=== PATIENT | female | born 1955 | race Caucasian/White ===

== ENCOUNTER → 2020-09-10 16:46 | Outpatient (BNVA) | payer SELFPAY | PROVIDERS: Family Provider Nurse Practitioner; PCP Nurse Practitioner; Visit Provider Nurse Practitioner | DX: E03.8 Other specified hypothyroidism (principal) | CPT/HCPCS: 84443 ==

== ENCOUNTER → 2020-09-12 11:17 | Outpatient (BNVA) | payer SELFPAY | PROVIDERS: Family Provider Nurse Practitioner; PCP Nurse Practitioner; Visit Provider Nurse Practitioner | DX: R19.7 Diarrhea, unspecified (principal); E03.8 Other specified hypothyroidism | CPT/HCPCS: 87506 ==

== ENCOUNTER 2021-01-29 11:06 | Emergency (ER) | payer SELFPAY ==
[2021-01-29 11:44] VITALS: BP 148/78; PULSE 65; RESP 18; TEMP 37.1; O2SAT 96; BMI 30.8
[2021-01-29] MEDS: rabies vaccine 2.5 unit SDV IM (13:41)
--- NOTE | 2021-01-29 14:19 | ED_ITS ---
HPI - Animal Bite General: Chief Complaint: Animal Bite Stated Complaint: Cat bite to L hand Time Seen by Provider: 01/29/21 11:51 Source: patient Mode of arrival: ambulatory Limitations: no limitations History of Present Illness: MD complaint: animal bite Onset (ago): minute(s) Animal: cat Description of animal: unknown animal Mechanism: bite Location: other (left 1st digit) Context: unprovoked Associated symptoms: Reports no associated symptoms; Deny chills, diaphoresis, fever(s), headache(s) or syncope Treatments prior to arrival: wound dressing(s) Related Data: Patient tetanus UTD: Yes Review of Systems Const: Denies: fever(s), chills, body aches, change in appetite, change in weight, fatigue, malaise or diaphoresis Eyes: Denies: change in vision, blurry vision, blind spots, photophobia, eye discomfort, eye discharge, eye redness, floaters or seeing flashes ENMT: Denies: throat pain, uvular edema, enlarged tonsils, odynophagia, hoarseness, mouth pain, swelling of lips/tongue, oral sores, bleeding gums, dental pain, dry mouth, ear or mastoid pain, ear discharge, change in hearing, tinnitus, disequilibrium, nasal discharge, nasal congestion, post nasal drip or sinus pain Card: Denies: chest pain, palpitations, irregular heart rhythm, edema, swelling of feet/ankles, lightheadedness, syncope, pre-syncope, dyspnea on exertion, orthopnea, leg pain with exertion or acrocyanosis Resp: Denies: dyspnea, productive cough, non-productive cough, wheezing, stridor, pain on inspiration, change in phlegm color, hemoptysis or chest congestion GI: Denies: abdominal pain, nausea, vomiting, hematemesis, dysphagia, diarrhea, constipation, GI cramping, change in bowel habits or rectal pain : Denies: flank pain, difficulty voiding, dysuria, urinary frequency, urinary urgency, urinary hesitancy or hematuria Musc: Denies: neck pain, back pain, extremity pain, extremity swelling, joint pain, joint swelling, joint redness, joint warmth or deformity Skin/Breast: Reports: other (puncture wound to distal portion of 1st digit left hand); Denies: rash, pruritus, erythema, sores, new lesions, changes in skin color or dry skin Neuro: Denies: headache(s), numbness in extremities, weakness in extremities, sensory changes, lack of coordination, difficulty walking, frequent falls, dizziness, vertigo, confusion, behavioral changes, Slurred speech present, difficulty communicating thoughts or seizure-like activity Psych: Denies: anxiety, depression, suicidal ideation or homicidal ideation Endo: Denies: polyuria, polydipsia, tired all the time, cold intolerance, excessive sweating, flushing, hot flashes or heat intolerance Da/Lymph: Denies: easy bruising, easy bleeding, petechiae, purpura, enlarged lymph nodes or tender lymph nodes All/Imm: Denies: urticaria, throat swelling, tongue swelling, facial swelling, acute wheezing or itchy eyes PFSH ED PFSH: Medical History Adult onset hypothyroidism Asthma dependent on inhaled steroids HZV (herpes zoster virus) post herpetic neuralgia Mixed hyperlipidemia Surgical History History of hysterectomy with BSO History of laparoscopy Family History Mother Hypertension Asthma Social History Smoking and tobacco status: never smoked Second hand smoke exposure: No Smoking risk assessment/counseling performed?: No Alcohol intake: never Desire information about alcohol rehabilitation?: No Counseling given: No Desire information about substance/drug rehabilitation?: No Counseling given: No Adopted: No Caregiver/support person: No Lives independently: Yes Household members: spouse Housing: House Marital status: Number of children: 2 service: No Current occupational status: retired History of recent travel: No Current gender identity: Female Physical Exam Const: COMMON NORMALS: no acute distress, average body habitus, patient arthur ented x3, no limitations, healthy appearing, alert and well nourished HENMT: THROAT: no uvular edema Extremity: COMMON NORMALS: full ROM, capillary refill normal, no joint enlargement, no clubbing, cyanosis or edema, no calf tenderness and no pedal edema NARRATIVE EXTREMITY EXAM: pt has a small puncture wound secondary to kitten bite to distal portion of left 1st digit Neuro: COMMON NORMALS: patient oriented x3 SENSORIUM/ORIENTATION: Yes alert Course Vital Signs: Vital signs: Vital Signs Temperature 98.8 F 01/29/21 11:44 Pulse Rate 65 01/29/21 11:44 Respiratory Rate 18 01/29/21 11:44 Blood Pressure 148/78 01/29/21 11:44 Pulse Oximetry 96 01/29/21 11:44 MDM - Animal Bite MDM Narrative: Medical decision making narrative: Pt is well appearing non toxic and in no acute distress. Pt reported to health department for cat bite and received tetanus. Pt was sent here for rabies vaccine which after sdiscussion with patient was administred. Pt will be started on antibiotics and instructions to return for days days 3, 7, and 14 vacinations was instructed. Wound was cleansed and dressed. Discharge Plan Discharge Clinical Impression: Encounter for immunization Cat bite Qualifiers: Encounter type: initial encounter Qualified Code(s): W55.01XA - Bitten by cat, initial encounter Condition: Stable Prescriptions: New doxycycline hyclate 100 mg capsule 100 mg PO BID 10 Days Qty: 20 RF: 0 No Action hydroxyzine pamoate 25 mg capsule 25 mg PO BID PRN (Reason: anxiety) Qty: 60 RF: 0 albuterol sulfate [ProAir HFA] 90 mcg/actuation HFA aerosol inhaler 2 puff INHALATION Q6H PRN (Reason: shortness of breath or wheezing) Qty: 6.7 RF: 5 levothyroxine 112 mcg tablet 112 mcg PO DAILY Qty: 90 RF: 1 montelukast [Singulair] 10 mg tablet 10 mg PO ONCE Qty: 90 RF: 1 gemfibrozil 600 mg tablet 600 mg PO BID Qty: 180 RF: 1 Flovent HFA 110 mcg/actuation HFA aerosol inhaler 2 puff INHALATION BID Qty: 12 RF: 5 fluticasone propionate 50 mcg/actuation spray,suspension 2 spray INTRANASAL DAILY Qty: 15.8 RF: 5 zonisamide [Zonegran] 25 mg capsule 25 mg PO Q12H Qty: 60 RF: 1 tizanidine 2 mg tablet 4 mg PO BID PRN (Reason: muscle spasticity) Qty: 120 RF: 2 duloxetine [Cymbalta] 20 mg capsule,delayed release(DR/EC) 20 mg PO BID Qty: 180 RF: 0 gabapentin 300 mg capsule 300 mg PO TID Qty: 90 RF: 2 Discharge Orders: Discharge ED (Routine); Ordered 01/29/21 Ordered By: Gertrude Larry Referrals: Clarence Brantley, MICROBIOLOGY MANAGER-C [Primary Care Provider] - Discharge Diet: Advance as tolerated Discharge Activity: Resume usual activity Patient Instructions: Rabies Vaccine (Injection), Rabies Immune Globulin (Injection) Activity Restrictions/Additional Instructions: Please take meds as directed Please return with any signs of infection such as fever or foul smelling drainage Please return to ER on days 3, 7, and 14 for continued series of rabies vaccine Coding Level of Care Code ED Pack Out Operator for Irma Santos
== END 2021-01-29 14:34 | disposition home or self-care (01) ==
PROVIDERS: Emergency Provider Registered Nurse; PCP Nurse Practitioner
DX: S61.452A Open bite of left hand, initial encounter (principal); W55.01XA Bitten by cat, initial encounter; Z20.3 Contact with and (suspected) exposure to rabies; Z29.14 Encounter for prophylactic rabies immune globulin; Z23 Encounter for immunization; E78.2 Mixed hyperlipidemia
CPT/HCPCS: 90375; 90471; 90675; 96372; 99283

== ENCOUNTER → 2021-04-28 10:31 | Outpatient (BNVA) | payer OTHER, SELFPAY | PROVIDERS: PCP Nurse Practitioner; Visit Provider Nurse Practitioner Family | DX: Z20.822 Contact with and (suspected) exposure to COVID-19 (principal) | CPT/HCPCS: 87426 ==

== ENCOUNTER 2021-04-29 08:33 | Outpatient (CLI) | payer OTHER, SELFPAY ==
[2021-04-29 08:43] VITALS: BMI 30.2
[2021-04-29 08:58] VITALS: BP 144/84; PULSE 80; RESP 18; TEMP 36.7; O2SAT 98
[2021-04-29 09:15] VITALS: BP 128/78; PULSE 96; RESP 20; TEMP 37.1; O2SAT 90
[2021-04-29 10:15] VITALS: BP 122/74; PULSE 67; RESP 18; TEMP 37.3; O2SAT 96
== END 2021-04-29 08:34 | disposition home or self-care (01) ==
LOC: OPS 08:36
PROVIDERS: PCP Nurse Practitioner; Visit Provider Nurse Practitioner Family
DX: U07.1 COVID-19 (principal)
CPT/HCPCS: 96365

== ENCOUNTER → 2021-05-12 11:52 | Outpatient (BNVA) | payer SELFPAY | PROVIDERS: PCP Nurse Practitioner; Visit Provider Nurse Practitioner | DX: E78.2 Mixed hyperlipidemia (principal); E03.8 Other specified hypothyroidism; J45.909 Unspecified asthma, uncomplicated; B02.8 Zoster with other complications; L30.8 Other specified dermatitis; M62.830 Muscle spasm of back | CPT/HCPCS: 80053; 80061; 84443 ==

== ENCOUNTER → 2021-05-19 11:32 | Outpatient (BNVA) | payer SELFPAY | PROVIDERS: PCP Nurse Practitioner; Visit Provider Family Medicine | DX: R05.9 Cough, unspecified (principal); R51.9 Headache, unspecified; R52 Pain, unspecified | CPT/HCPCS: 86710; 87400; 87426 ==

== ENCOUNTER → 2021-06-16 14:05 | Outpatient (BNVA) | payer SELFPAY | PROVIDERS: PCP Nurse Practitioner; Visit Provider Nurse Practitioner | DX: L98.9 Disorder of the skin and subcutaneous tissue, unspecified (principal) | CPT/HCPCS: 88305 ==

== ENCOUNTER → 2021-07-22 08:58 | Outpatient (BNVA) | payer SELFPAY | PROVIDERS: PCP Nurse Practitioner; Visit Provider Dermatology | DX: Z01.89 Encounter for other specified special examinations (principal) ==

== ENCOUNTER → 2021-08-13 09:20 | Outpatient (BNVA) | payer SELFPAY | PROVIDERS: PCP Nurse Practitioner; Visit Provider Dermatology | DX: Z01.89 Encounter for other specified special examinations (principal) ==

== ENCOUNTER → 2021-12-17 08:51 | Outpatient (BNVA) | payer BC, SELFPAY | PROVIDERS: PCP Nurse Practitioner; Visit Provider Nurse Practitioner | DX: E03.8 Other specified hypothyroidism (principal); E78.2 Mixed hyperlipidemia | CPT/HCPCS: 80053; 80061; 84443 ==

== ENCOUNTER 2022-05-22 07:36 | Outpatient (CLI) | payer BC, SELFPAY ==
--- NOTE | 2022-05-22 07:47 | MM_ITS ---
WS: [id number] Bilateral screening 3D tomosynthesis digital mammogram, 05/22/2022 Clinical Data: SCREEN Comparison: 10/15/2017, 10/23/2014, 12/23/2009, 01/23/2008, 01/20/2007. Findings: The breast parenchymal pattern shows heterogeneous density. No spiculated masses or clustered calcifi cations are seen. There are no secondary signs of carcinoma. MM/[place] [id number] Impression: 1. Negative bilateral mammogram unchanged. 2. Recommend annual screening mammograms. BIRADS: 1-Negative FOLLOW UP: 1 Year Follow-up The CAD bad cloth checker was used.
== END 2022-05-22 07:37 | disposition home or self-care (01) ==
PROVIDERS: PCP Nurse Practitioner; Visit Provider Nurse Practitioner
DX: Z12.31 Encounter for screening mammogram for malignant neoplasm of breast (principal)
CPT/HCPCS: 77063; 77067

== ENCOUNTER 2022-10-02 05:58 | Day surgery (SDC) | payer BC, SELFPAY ==
[2022-09-30 12:54] VITALS: BMI 30.8
[2022-10-02 06:18] VITALS: BP 107/76; PULSE 71; RESP 18; TEMP 36.1; O2SAT 97
[2022-10-02] MEDS: sodium chloride 0.9% 1,000 ML 30 ML IV (06:21)
--- NOTE | 2022-10-02 06:54 | ANES.PREANE2 ---
Pre-Anesthetic Assessment Height/Weight: Height 1.55 m Weight 73.936 kg Temp Pulse Resp BP Pulse Ox O2 Del Method 97.0 F L 71 18 107/76 97 10/02/22 06:18 10/02/22 06:18 10/02/22 06:18 10/02/22 06:18 10/02/22 06:18 10/02/22 06:18 Preop Diagnosis: screening Operation Date: 10/02/22 07:30 Proposed Procedures p [id number] colon : Z12.11(Bilateral) - Shelton Chu DO Familial anesthetic complications: dad was slow to wake up Was Beta Danita taken within 24 hours: N/A Was Clonidine taken within 24 hours: N/A Last intake: Intake Last Liquid Date 10/02/22 Last Liquid Time 01:00 Last Solid Date 09/30/22 Last Solid Time 20:30 Last Intake: 01:00 Social No alcohol and No tobacco Exam alert, oriented x 3, clear to auscultation bilaterally and regular rate & rhythm Airway Submandibular: within normal limits Cervical ROM: within normal limits Mallampati: Class II Dentition: full Pulmonary Asthma and Exertional Dyspnea CV/HEM None reported Chronic Renal Insufficiency Hepatic None reported GI Gastroesophageal Reflux Disease (food related) Metabolic Thyroid Disease [facility] None reported Neuropsych None reported Anesthetic Plan ASA status: 2 Anesthesia: MAC Risk of > 500 ml blood loss (7ml/kg in children): No Medications/Allergies Home Medications Medication Instructions Recorded Confirmed Last Taken Type albuterol sulfate 90 mcg/actuation 2 puff inhalation Q6H PRN 12/26/21 10/02/22 09/30/22 Rx aerosol inhaler (ProAir HFA) shortness of breath or wheezing #6.7 grams fluticasone propionate 110 2 puff inhalation BID #12 grams 08/14/22 10/02/22 09/30/22 Rx mcg/actuation HFA aerosol inhaler (Flovent HFA) gemfibrozil 600 mg tablet 600 mg PO BID #180 tabs 08/14/22 10/02/22 09/30/22 Rx levothyroxine 112 mcg tablet 112 mcg PO DAILY #90 tabs 08/14/22 10/02/22 09/30/22 Rx montelukast 10 mg tablet 10 mg PO DAILY #90 tabs 08/14/22 10/02/22 09/30/22 Rx (Singulair) tizanidine 2 mg tablet 4 mg PO BID PRN muscle spasticity 08/14/22 10/02/22 09/30/22 Rx #120 tabs fluticasone propionate 50 2 spray intranasal DAILY PRN 09/30/22 10/02/22 09/30/22 History mcg/actuation nasal Congestion spray,suspension Allergies Allergy/AdvReac Type Severity Reaction Status Date / Time oxaprozin [From Daypro] Allergy Unknown unknown Verified 10/02/22 06:15 Penicillins Allergy Unknown unknown Verified 10/02/22 06:15 Current Medications Generic Name Dose Route Start Last Admin Trade Name Freq PRN Reason Stop Dose Admin Sodium Chloride 1,000 mls @ 30 mls/hr 10/02/22 06:00 10/02/22 06:21 Sodium Chloride 0.9% IV 10/03/22 05:59 30 mls/hr .Q24H KOSTA Administration PFSH Anesthesia Medical History Adult onset hypothyroidism Asthma dependent on inhaled steroids HZV (herpes zoster virus) post herpetic neuralgia Mixed hyperlipidemia Obesity (BMI 30.0-34.9) Surgical History History of hysterectomy with BSO History of laparoscopy Family History Mother Hypertension Asthma Social History Smoking and tobacco status: never smoked Second hand smoke exposure: No Smoking risk assessment/counseling performed?: No Alcohol intake: never Desire information about alcohol rehabilitation?: No Counseling given: No Desire information about substance/drug rehabilitation?: No Counseling given: No Adopted: No Caregiver/support person: No Lives independently: Yes Household members: spouse Housing: House Marital status: Number of children: 2 service: No Current occupational status: retired History of recent travel: No Current gender identity: Female Data Anesthesia Cardiac Studies: No Data to Display
--- NOTE | 2022-10-02 07:35 | PM.HP ---
Providers/Chief Complaint Primary Care Provider: DARWIN Fowler Chief Complaint: Encounter for screening History of Present Illness Claritza Nguyen is a 67 year old female who presents for a screening colonoscopy. Her last colonoscopy was in 2007 and was within normal limits reportedly. She denies any abdominal pain, nausea, emesis, diarrhea, constipation, hematochezia and/or melena. Denies any family history of colon cancer. Medications/Allergies Home Medications Medication Instructions Recorded Confirmed Last Taken Type albuterol sulfate 90 mcg/actuation 2 puff inhalation Q6H PRN 12/26/21 10/02/22 09/30/22 Rx aerosol inhaler (ProAir HFA) shortness of breath or wheezing #6.7 grams fluticasone propionate 110 2 puff inhalation BID #12 grams 08/14/22 10/02/22 09/30/22 Rx mcg/actuation HFA aerosol inhaler (Flovent HFA) gemfibrozil 600 mg tablet 600 mg PO BID #180 tabs 08/14/22 10/02/22 09/30/22 Rx levothyroxine 112 mcg tablet 112 mcg PO DAILY #90 tabs 08/14/22 10/02/22 09/30/22 Rx montelukast 10 mg tablet 10 mg PO DAILY #90 tabs 08/14/22 10/02/22 09/30/22 Rx (Singulair) tizanidine 2 mg tablet 4 mg PO BID PRN muscle spasticity 08/14/22 10/02/22 09/30/22 Rx #120 tabs fluticasone propionate 50 2 spray intranasal DAILY PRN 09/30/22 10/02/22 09/30/22 History mcg/actuation nasal Congestion spray,suspension Allergies Allergy/AdvReac Type Severity Reaction Status Date / Time oxaprozin [From Daypro] Allergy Unknown unknown Verified 10/02/22 06:15 Penicillins Allergy Unknown unknown Verified 10/02/22 06:15 PFSH Acute PFSH: Medical History Adult onset hypothyroidism Asthma dependent on inhaled steroids HZV (herpes zoster virus) post herpetic neuralgia Mixed hyperlipidemia Obesity (BMI 30.0-34.9) Surgical History History of hysterectomy with BSO History of laparoscopy Family History Mother Hypertension Asthma Social History Smoking and tobacco status: never smoked Second hand smoke exposure: No Smoking risk assessment/counseling performed?: No Alcohol intake: never Desire information about alcohol rehabilitation?: No Counseling given: No Desire information about substance/drug rehabilitation?: No Counseling given: No Adopted: No Caregiver/support person: No Lives independently: Yes Household members: spouse Housing: House Marital status: Number of children: 2 service: No Current occupational status: retired History of recent travel: No Current gender identity: Female Vitals/I&O/Wt Last Vital Signs Temp 97.0 F L 10/02/22 06:18 Pulse 71 10/02/22 06:18 Resp 18 10/02/22 06:18 BP 107/76 10/02/22 06:18 Pulse Ox 97 10/02/22 06:18 O2 Del Method 10/02/22 06:18 Weight last 48 hrs Weight 163 lb A&P Assessment and plan (1) Colon cancer screening: Plan Colonoscopy The risks and benefits of the procedure, including bleeding, infection, intestinal perforation requiring surgery, missed lesion were explained to the patient. The patient is understanding of the risks and wishes to proceed. Attestations Medical Necessity Statement*: Home Coding Level of Care Code Acute Code for Chg Fwd Diagnoses Colon cancer screening Z12.11
[2022-10-02 08:02] VITALS: BP 111/70; PULSE 73; RESP 12; TEMP 36.4; O2SAT 97
[2022-10-02 08:17] VITALS: BP 124/78; PULSE 87; RESP 14; O2SAT 97
[2022-10-02 08:27] VITALS: BP 125/79; PULSE 85; RESP 16; O2SAT 95
--- NOTE | 2022-10-02 17:57 | ANE.PACU2 ---
Inpatient post-anesthesia follow up: Airway intact: Yes Vital signs: Temperature 97.5 F Pulse Rate 85 Respiratory Rate 16 Blood Pressure 125/79 Pulse Oximetry 95 Oxygen Delivery Me thod Room Air Oxygen Flow Rate Fraction of Inspir ed Oxygen Hydration adequate: Yes Nausea and vomiting: No Pain level: 1 Mental status: Baseline
== END 2022-10-02 08:40 | disposition home or self-care (01) ==
PROVIDERS: PCP Nurse Practitioner; Visit Provider Surgery
PROC: 0DJD8ZZ Inspection of Lower Intestinal Tract, Via Natural or Artificial Opening Endoscopic (ICD-10-PCS; CPT 45378; principal; 2022-10-02 07:30)
DX: Z12.11 Encounter for screening for malignant neoplasm of colon (principal); E03.9 Hypothyroidism, unspecified; E78.2 Mixed hyperlipidemia; E66.9 Obesity, unspecified; Z68.30 Body mass index [BMI] 30.0-30.9, adult
CPT/HCPCS: 45378; J2704; J7030

== ENCOUNTER → 2023-02-16 16:59 | Outpatient (BNVA) | payer BC, SELFPAY | PROVIDERS: PCP Nurse Practitioner; Visit Provider Nurse Practitioner | DX: R05.9 Cough, unspecified (principal); E03.8 Other specified hypothyroidism; Z79.899 Other long term (current) drug therapy | CPT/HCPCS: 81000 ==

== ENCOUNTER → 2023-02-17 11:00 | Outpatient (BNVA) | payer BC, SELFPAY | PROVIDERS: PCP Nurse Practitioner; Visit Provider Nurse Practitioner | DX: R05.9 Cough, unspecified (principal) | CPT/HCPCS: 71046 ==

== ENCOUNTER → 2023-04-20 09:00 | Outpatient (BNVA) | payer SELFPAY | PROVIDERS: PCP Nurse Practitioner; Visit Provider Nurse Practitioner | DX: Z01.89 Encounter for other specified special examinations (principal) ==

== ENCOUNTER → 2023-07-20 09:18 | Outpatient (BNVA) | payer SELFPAY | PROVIDERS: PCP Nurse Practitioner; Visit Provider Nurse Practitioner | DX: Z01.89 Encounter for other specified special examinations (principal); E03.8 Other specified hypothyroidism ==

== ENCOUNTER → 2023-07-27 17:53 | Outpatient (BNVA) | payer MEDICARE, SELFPAY | PROVIDERS: PCP Nurse Practitioner; Visit Provider Nurse Practitioner | DX: J45.909 Unspecified asthma, uncomplicated (principal); E78.2 Mixed hyperlipidemia; E03.8 Other specified hypothyroidism; Z79.51 Long term (current) use of inhaled steroids; M62.830 Muscle spasm of back; E66.9 Obesity, unspecified | CPT/HCPCS: 81000 ==

== ENCOUNTER → 2023-08-31 09:48 | Outpatient (BNVA) | payer MEDICARE, SELFPAY | PROVIDERS: PCP Nurse Practitioner; Visit Provider Nurse Practitioner | DX: R30.0 Dysuria (principal); N32.89 Other specified disorders of bladder; E03.8 Other specified hypothyroidism | CPT/HCPCS: 81000; 87077; 87086; 87184 ==

== ENCOUNTER 2023-09-24 06:03 | Outpatient (CLI) | payer MEDICARE, SELFPAY ==
--- NOTE | 2023-09-24 06:15 | US_ITS ---
WS: [id number] RENAL ULTRASOUND HISTORY: R30.0 - Dysuria COMPARISON: None available. TECHNIQUE: 2-D and color Doppler imaging of the kidney submitted. Right kidney: 9.5 cm x 4.2 cm x 3.7 cm. Cortex: 1.1 cm Normal echogenicity with no hydronephrosis or mass. Left kidney: 9.1 cm x 4.8 cm x 4.7 cm. Cortex: 1.2 cm Normal echogenicity with no hydronephrosis or mass. Aorta: Normal. Urinary Bladder: Normal distention. IMPRESSION: Normal renal ultrasound.
== END 2023-09-24 06:04 | disposition home or self-care (01) ==
LOC: RAD 06:03
PROVIDERS: Visit Provider Nurse Practitioner
DX: N32.89 Other specified disorders of bladder (principal); R30.0 Dysuria
CPT/HCPCS: 76770

== ENCOUNTER → 2023-10-19 09:02 | Outpatient (BNVA) | payer SELFPAY | PROVIDERS: PCP Nurse Practitioner; Visit Provider Nurse Practitioner | DX: Z01.89 Encounter for other specified special examinations (principal) ==

== ENCOUNTER 2023-11-23 14:35 | Outpatient (CLI) | payer BC, MEDICARE, SELFPAY ==
--- NOTE | 2023-11-23 14:30 | MM_ITS ---
WS: [id number] BILATERAL 3D TOMOSYNTHESIS DIGITAL SCREENING MAMMOGRAPHY WITH CAD CLINICAL INFORMATION: Z12.31 - Encounter for screening mammogram for malignant ... HISTORY: Screening mammogram. No current complaints. COMPARISON: 2021 TECHNIQUE: Bilateral CC and MLO views. FINDINGS: Scattered fibroglandular densities bilaterally. No suspicious focal mass, asymmetry, calcifications, or architectural distortion. No evidence of malignancy. IMPRESSION: MM/[place] [id number] BI-RADS: 1-Negative FOLLOW UP: 1 Year Follow-up Recommend return to annual screening mammography.
== END 2023-11-23 14:36 | disposition home or self-care (01) ==
LOC: MOBLMAM 14:44
PROVIDERS: PCP Nurse Practitioner; Visit Provider Nurse Practitioner
DX: Z12.31 Encounter for screening mammogram for malignant neoplasm of breast (principal)
CPT/HCPCS: 77063; 77067

== ENCOUNTER 2024-07-04 08:03 | Outpatient (CLI) | payer BC, SELFPAY | END 2024-07-04 08:04 | disposition home or self-care (01) | LOC: RT 08:04 | PROVIDERS: PCP Nurse Practitioner; Visit Provider Nurse Practitioner | DX: J45.909 Unspecified asthma, uncomplicated (principal) | CPT/HCPCS: 94010 ==

== ENCOUNTER → 2024-10-03 09:09 | Outpatient (BNVA) | payer BC, SELFPAY | PROVIDERS: PCP Nurse Practitioner; Visit Provider Nurse Practitioner | DX: Z12.72 Encounter for screening for malignant neoplasm of vagina (principal) | CPT/HCPCS: 88175 ==

== ENCOUNTER 2024-11-24 07:48 | Outpatient (CLI) | payer BC, SELFPAY ==
--- NOTE | 2024-11-24 08:00 | MM_ITS ---
WS: [id number] BILATERAL SCREENING DIGITAL TOMOSYNTHESIS MAMMOGRAM WITH CAD HISTORY: Z12.31 - Encounter for screening mammogram for malignant ... COMPARISON: 11/23/2023, 05/22/2022 Bilateral CC and MLO views with tomosynthesis and synthetic mammography submitted. Computer aided detection analyzed. Breast composition: There are scattered areas of fibroglandular density. No suspicious masses, microcalcifications or architectural distortion. MM/MM scr BI tomosynthesis [id number] IMPRESSION: BI-RADS: 2 - Benign. FOLLOW UP: 1 Year Follow-up
== END 2024-11-24 07:49 | disposition home or self-care (01) ==
PROVIDERS: PCP Nurse Practitioner; Visit Provider Nurse Practitioner
DX: Z12.31 Encounter for screening mammogram for malignant neoplasm of breast (principal); R92.323 Mammographic fibroglandular density, bilateral breasts
CPT/HCPCS: 77063; 77067

== ENCOUNTER 2025-08-07 13:49 | Outpatient (CLI) | payer BC, SELFPAY ==
--- NOTE | 2025-08-07 14:00 | XR_ITS ---
WS: [id number] SCREENING DEXA SCAN [email or web address] CLINICAL INFORMATION: Z78.0 - Asymptomatic menopausal state COMPARISON: None. FINDINGS: The L1-L4 bone mineral density measures 0.809 g/cm2. This corresponds to a T score score of -3.1 and Z score of -1.6. Left femoral neck bone mineral density measures 0.762 g/cm2. This corresponds to a T score of -1.9 and Z score of -0.7. Right femoral neck bone mineral density measures 0.698 g/cm2. This corresponds to a T score -2.5of and Z score of -1.2. Mean femoral neck bone mineral density measures 0.730 g/cm2. This corresponds to a T score of -2.2 and Z score of -1.0. XR/XR DEXA axial skeleton* [id number] IMPRESSION: Osteoporosis lumbar spine. Osteopenia femoral necks. Patient's FRAX calculated 10 year probability for major osteoporotic fracture i s 14.7% and osteoporotic hip fracture is 3.7%.
== END 2025-08-07 13:50 | disposition home or self-care (01) ==
LOC: RAD 13:50
PROVIDERS: PCP Nurse Practitioner; Visit Provider Nurse Practitioner
DX: Z78.0 Asymptomatic menopausal state (principal); M81.0 Age-related osteoporosis without current pathological fracture; M85.88 Other specified disorders of bone density and structure, other site
CPT/HCPCS: 77080